=== PATIENT | male | born 1950 | race Caucasian/White ===

== ENCOUNTER 2022-03-16 08:09 | Emergency (ER) | payer BC ==
[~2022-03-16] VITALS: Ht 175.3 cm; Wt 113.4 kg
--- NOTE | 2022-03-16 08:25 | NUR ---
Patient to ER Tent1 to gown for evaluation. Side rails up. Report given to Linda RINALDI.
[2022-03-16 08:26] VITALS: BP_SYST 101
--- NOTE | 2022-03-16 08:40 | NUR ---
Pt presents from home to ER BIB self CC Sore throat with slight head ache. Pt aaox4, skin intact, denies N-V- pt noted x1 episode of diarrhea.
[2022-03-16] MEDS ORDERED: DEXAMETHASONE SOD PHOSPHATE 10 MG/ML VIAL PO ONE (08:45)
--- NOTE | 2022-03-16 08:51 | NUR ---
RX given with grape juice pt tolerated well.
--- NOTE | 2022-03-16 09:00 | NUR ---
Pt with ER at bedside examining patient.
--- NOTE | 2022-03-16 09:11 | NUR ---
Pt noted went to wait for discharge in his vehicle, did not want to bring symptoms into the tent. contact: [phone].
[2022-03-16 09:22] VITALS: BP_SYST 101
--- NOTE | 2022-03-16 09:24 | NUR ---
Patient given written and verbal discharge instructions and verbalizes understanding. ER MD discussed with patient the results and treatment provided. Patient in stable condition. ID arm band removed. Opportunity for questions provided and answered. Medication side effect fact sheet provided.
[2022-03-16] MEDS ORDERED: NIRM1TAB PO (11:14)
[2022-03-16 11:18] LABS: STREPTOCOCCUS A SCREEN (RAPID) NEGATIVE (NEGATIVE)
--- NOTE | 2022-03-16 13:16 | NUR ---
Crititcal lab results from [facility]: covid positive. Pt contacted on his cell phone and given results and directives to quarantine until symptoms subside. Return to ER for SOB and follow up with PCP.
== END 2022-03-16 09:24 | disposition home or self-care (01) ==
LOC: SED 08:09
DX: U07.1 COVID-19 (principal); J02.9 Acute pharyngitis, unspecified; E11.9 Type 2 diabetes mellitus without complications; Z79.899 Other long term (current) drug therapy
CPT/HCPCS: 99283; 87426; 86403; 36415; 87081; J1100